=== PATIENT | male | born 1970 | race Caucasian/White ===

== ENCOUNTER 2019-09-20 05:58 | Emergency (ER) | payer MEDICARE, OTHER ==
[~2019-09-20] VITALS: Ht 177.8 cm; Wt 74.8 kg
[2019-09-20] MEDS ORDERED: LISI5 (06:07)
[2019-09-20] MEDS ORDERED: LITH300C (06:07)
[2019-09-20] MEDS ORDERED: Norvasc2.5 MG (06:08)
[2019-09-20 06:56] LABS: BASOPHILS ABSOLUTE AUTO 0.12 K/mm3 (0.00-0.23); BASOPHILS PERCENT AUTO 1 % (0-2); EOSINOPHILS PERCENT AUTO 3 % (0-6); Hematocrit 39.6 % (37.0-53.0); IMMATURE GRAN ABSOLUTE AUTO 0.18 K/mm3 (0.00-0.10); IMMATURE GRAN PERCENT AUTO 2 % (0-1); LYMPHOCYTES ABSOLUTE AUTO 2.93 K/mm3 (0.84-5.20); LYMPHOCYTES PERCENT AUTO 28 % (21-46); MONOCYTES ABSOLUTE AUTO 0.93 K/mm3 (0.16-1.47); MONOCYTES PERCENT AUTO 9 % (4-13); Mean Corpuscular HGB 29.7 pg (26.0-34.0); Mean Corpuscular HGB Conc 32.8 g/dL (31.5-36.5); Mean Corpuscular Volume 90 fL (80-100); Mean Platelet Volume 8.5 fL (9.1-12.4); NEUTROPHILS ABSOLUTE AUTO 6.04 K/mm3 (1.96-9.15); NEUTROPHILS PERCENT AUTO 58 % (41-73); Platelet Count 456 K/mm3 (150-400); RDW Coefficient Variation 12.2 % (11.7-14.2); Red Blood Cell Count 4.38 M/mm3 (4.30-5.90)
[2019-09-20 07:13] LABS: Alanine Aminotransfer (ALT/SGP 29 U/L (12-78); Albumin, Blood 3.3 g/dL (3.4-5.0); Anion Gap 8 mmol/L (6-16); Aspartate Aminotrans (AST/SGOT 12 U/L (12-37); Blood Urea Nitrogen 13 mg/dL (8-24); Bun/Creatinine Ratio 20.7 (12.0-20.0); CO2, Blood 25 mmol/L (21-32); Calcium, Blood 8.5 mg/dL (8.5-10.1); Chloride, Blood 108 mmol/L (98-108); Creatinine, Blood 0.63 mg/dL (0.60-1.20); Glomerular Filtration Rate >60 (60-); Glucose, Blood 105 mg/dL (70-99); Potassium, Blood 3.6 mmol/L (3.5-5.5); Sodium, Blood 141 mmol/L (136-145)
[2019-09-20 07:14] LABS: Alk Phos 77 U/L (50-136); Bilirubin, Total <0.1 mg/dL (0.1-1.0); Globulin, Blood 3.2 g/dL (2.2-4.0); Total Protein, Blood 6.5 g/dL (6.4-8.2)
[2019-09-20 07:33] LABS: Source, Urine Voided
[2019-09-20 07:36] LABS: Appearance, Urine Clear (Clear); Bilirubin, Urine Neg (Neg); Blood, Urine Neg (Neg); Color, Urine Yellow (P-Yellow); Glucose Qualitative, Urine Neg (Neg); Ketones, Urine Neg (Neg); Leukocyte Esterase, Urine Neg (Neg); Nitrite, Urine Neg (Neg); Protein, Urine Neg (Neg); Urobilinogen, Urine NORM (Normal)
[2019-09-20 07:42] LABS: Lithium <0.20 mmol/L (0.60-1.20)
[2019-09-20 07:55] LABS: U Amphetamine Screen Not Detected; U Barbituate Screen Not Detected; U Benzodiazapine Screen Not Detected; U Buprenorphine Screen Not Detected; U Cannabinoids Screen Not Detected; U Cocaine Screen Not Detected; U Methadone Screen Not Detected; U Methamphetamine Screen Not Detected; U Opiates Screen Not Detected; U Oxycodone Screen Not Detected; U Propoxyphene Screen Not Detected
[2019-09-20] MEDS ORDERED: MOTRIN IB200 MG PO (08:21)
[2019-09-20] MEDS ORDERED: ALBU90OI INH (08:21)
[2019-09-21] MEDS ORDERED: IBUP800 PO (04:09)
[2019-09-21] MEDS ORDERED: Norco 5-325 Ta1 EACH PO (04:09)
== END 2019-09-20 08:42 | disposition home or self-care (01) ==
LOC: ER 05:58
PROVIDERS: Emergency Medicine
DX: N50.812 Left testicular pain (principal); I10 Essential (primary) hypertension; F31.9 Bipolar disorder, unspecified; Z88.0 Allergy status to penicillin; Z79.899 Other long term (current) drug therapy; Z87.442 Personal history of urinary calculi; Z87.891 Personal history of nicotine dependence
CPT/HCPCS: 74176; 76870; 80053; 80178; 81003; 85025; 94640; 96361; 96374; 96375; 99284-25; J1885; J2405; J7030

== ENCOUNTER 2025-02-09 16:07 | Emergency (ER) | payer OTHER, MEDICARE ==
[~2025-02-09] VITALS: Ht 177.8 cm; Wt 70.3 kg
[~2025-02-09 16:07] MED LIST: ALBU90OI INH; IBUP800 PO; LISI5; LITH300C; MOTRIN IB200 MG PO; Norco 5-325 Ta1 EACH PO; Norvasc2.5 MG
[2025-02-09 16:10] VITALS: BP 111/76
[2025-02-09] MEDS ORDERED: Ketorolac Tromethamine 15mg Vial IM ONE (16:35)
[2025-02-09] MEDS ORDERED: IBUP800 PO (17:19)
[2025-02-10] MEDS ORDERED: IBUP800 PO (11:52)
[2025-02-10] MEDS ORDERED: HYDR1TAB94 PO (11:52)
[2025-02-10] MEDS ORDERED: LIDOCAINE1 EACH TOP (11:52)
== END 2025-02-09 17:22 | disposition home or self-care (01) ==
LOC: ER 16:07
DX: M25.511 Pain in right shoulder (principal); W01.0XXA Fall on same level from slipping, tripping and stumbling without subsequent striking against object, initial encounter; Z88.0 Allergy status to penicillin; Z88.1 Allergy status to other antibiotic agents; Z79.899 Other long term (current) drug therapy; Z87.891 Personal history of nicotine dependence
CPT/HCPCS: 73030; 96372; 99283-25; J1885

== ENCOUNTER 2025-02-10 11:18 | Emergency (ER) | payer OTHER, MEDICARE ==
[~2025-02-10] VITALS: Ht 180.3 cm; Wt 70.3 kg
[2025-02-10 11:22] VITALS: BP 135/85
[2025-02-10] MEDS ORDERED: HYDROcodone 5-APAP 325 TAB PO ONE (11:30)
[2025-02-10] MEDS ORDERED: Ibuprofen 400 MG Tab PO ONE (11:35)
[2025-02-10] MEDS ORDERED: Acetaminophen 325 MG TABLET PO ONE (11:35)
[2025-02-10] MEDS ORDERED: Methyl Salicylate/Menth/Camph 57 GM TUBE TOP ONE (11:35)
[2025-02-10] MEDS ORDERED: LIDOCAINE1 EACH TOP (11:52)
[2025-02-10] MEDS ORDERED: IBUP800 PO (11:52)
[2025-02-10] MEDS ORDERED: HYDR1TAB94 PO (11:52)
== END 2025-02-10 12:26 | disposition home or self-care (01) ==
LOC: ER 11:18
DX: S46.011A Strain of muscle(s) and tendon(s) of the rotator cuff of right shoulder, initial encounter (principal); W01.0XXA Fall on same level from slipping, tripping and stumbling without subsequent striking against object, initial encounter; I10 Essential (primary) hypertension; F31.9 Bipolar disorder, unspecified; Z87.891 Personal history of nicotine dependence; Z88.0 Allergy status to penicillin; Z79.899 Other long term (current) drug therapy
CPT/HCPCS: 99283; A9270

== ENCOUNTER 2025-02-10 23:52 | Emergency (ER) | payer MEDICARE, OTHER ==
[~2025-02-10] VITALS: Ht 177.8 cm; Wt 72.6 kg
[~2025-02-10 23:52] MED LIST changes: +HYDR1TAB94 PO; +LIDOCAINE1 EACH TOP
[2025-02-11 01:01] VITALS: BP 147/97
== END 2025-02-11 00:58 | disposition home or self-care (01) ==
LOC: ER 23:52
DX: S90.822A Blister (nonthermal), left foot, initial encounter (principal); S90.821A Blister (nonthermal), right foot, initial encounter; I10 Essential (primary) hypertension; X58.XXXA Exposure to other specified factors, initial encounter; Z87.891 Personal history of nicotine dependence; Z79.899 Other long term (current) drug therapy; Z88.0 Allergy status to penicillin; Z88.1 Allergy status to other antibiotic agents
CPT/HCPCS: 99283; A9270

== ENCOUNTER 2025-02-11 08:20 | Emergency (ER) | payer MEDICARE, OTHER ==
[~2025-02-11] VITALS: Ht 177.8 cm; Wt 72.6 kg
[2025-02-11 09:43] VITALS: BP 148/100
[2025-02-11] MEDS ORDERED: Ketorolac Tromethamine 30mg Vial IM ONE (09:45)
== END 2025-02-11 10:35 | disposition home or self-care (01) ==
LOC: ER 08:20
DX: S43.401A Unspecified sprain of right shoulder joint, initial encounter (principal); Z76.0 Encounter for issue of repeat prescription; X58.XXXA Exposure to other specified factors, initial encounter; Z87.891 Personal history of nicotine dependence
CPT/HCPCS: 96372; 99281-25; A9270; J1885